=== PATIENT | male | born 1975 | race American Indian/Alaskan Native ===

== ENCOUNTER 2017-01-20 17:14 | Emergency (ER) | payer OTHER ==
[2017-01-20 17:42] VITALS: TEMP 98.1; O2SAT 97
[2017-01-20] MEDS ORDERED: Oxycodone/Acetaminophen 5/325 mg Tab PO STA (18:09)
[2017-01-20] MEDS ORDERED: Oxycodone/Acetaminophen 5/325 mg Tab ONE (18:21)
--- NOTE | 2017-01-20 18:47 | RAD ---
PROCEDURE: Left Knee Radiographs. HISTORY: Pain. COMPARISON: None. FINDINGS: BONES: Normal. No fracture. JOINTS: Mild narrowing of medial and lateral compartments and mild subchondral sclerosis medial tibial articular surface. JOINT EFFUSION: None. OTHER FINDINGS: None. IMPRESSION: Mild medial and lateral compartment osteoarthritis. No acute fracture.
--- NOTE | 2017-01-20 19:14 | C.PDOC ---
History Of Present Illness Patient is a 41 y/o male that presents to the ED s/p injury for evaluation of left knee pain. Patient states that he was hit by a fork lift, injuring his left knee FIRST LEVELER. Otherwise, denies any sensory changes, weakness, numbness, redness, swelling, fever, chills, or any other associated symptoms at this time. Time Seen by Provider: 01/20/17 18:07 Chief Complaint (Nursing): Lower Extremity Problem/Injury History Per: Patient History/Exam Limitations: no limitations Onset/Duration Of Symptoms: Other (FIRST LEVELER) Current Symptoms Are (Timing): Still Present Recent travel outside of the [place]: No Additional History Per: Patient - Knee Description Of Injury: Struck With Object Past Medical History Reviewed: Historical Data, Nursing Documentation, Vital Signs Vital Signs: Last Vital Signs Temp 98.1 F 01/20/17 17:39 Pulse 76 01/20/17 19:23 Resp 16 01/20/17 19:23 BP 152/86 H 01/20/17 19:23 Pulse Ox 97 01/20/17 19:50 - Medical History PMH: Fractures (LT HAND) Family History: States: Unknown Family Hx, Hypertension - Social History Hx Alcohol Use: Yes Hx Substance Use: Yes (Marijuana, occasionally) - Immunization History Hx Tetanus Toxoid Vaccination: No Hx Influenza Vaccination: No Hx Pneumococcal Vaccination: No Review Of Systems Except As Marked, All Systems Reviewed And Found Negative. Constitutional: Negative for: Fever, Chills Musculoskeletal: Positive for: Leg Pain (left knee pain) Neurological: Negative for: Weakness, Numbness Physical Exam - Physical Exam Appears: Non-toxic, No Acute Distress Skin: Normal Color, Warm, Dry Head: Atraumatic, Normacephalic Eye(s): bilateral: Normal Inspection, EOMI Extremity: Normal ROM, Tenderness (diffuse left knee), Capillary Refill (<2 sec. ), No Deformity, No Swelling (no left knee swelling) Extremity: Bilateral: Normal Color And Temperature, Normal ROM Pulses: Left Dorsalis Pedis: Normal, Right Dorsalis Pedis: Normal Neurological/Psych: Oriented x3, Normal Speech, Normal Cognition, Normal Motor, Normal Sensation ED Course And Treatment O2 Sat by Pulse Oximetry: 97 (on RA) Pulse Ox Interpretation: Normal - Other Rad Left knee x-ray X-Ray: Viewed By Me, Read By Radiologist Interpretation: FINDINGS: BONES: Normal. No fracture. JOINTS: Mild narrowing of medial and lateral compartments and mild subchondral sclerosis medial tibial articular surface. JOINT EFFUSION: None. OTHER FINDINGS: None. IMPRESSION: Mild medial and lateral compartment osteoarthritis. No acute fracture. Progress Note: Left knee x-ray ordered and reviewed. Patient was given Percocet in the ED. Knee mobilizer applied to left knee by CP and checked by me. Pt is being discharged home with prescriptions of Motrin, and Percocet. Crutches were provided to patient. Patient was instructed to follow up with PMD/orthopedist in 1-2 days. Disposition - Disposition Referrals: Calvin Bishop MD [Staff Provider] - Disposition: HOME/ ROUTINE Disposition Time: 19:14 Condition: GOOD Additional Instructions: Follow up with PMD / Orthopedist within 1-2 days. Return to ED if feel worse. Prescriptions: Ibuprofen [Motrin Tab] 600 mg PO Q8 #30 tab Acetaminophen/Oxycodone Hydr [Percocet 10/325 mg Tab] 1 tab PO Q6H #20 tab Instructions: Knee Sprain (ED), Knee Immobilizer (ED) Forms: Work Excuse - Clinical Impression Clinical Impression: Knee injury - PA / BOX TENDER / Resident Statement MD/DO has reviewed & agrees with the documentation as recorded. - Scribe Statement The provider has reviewed the documentation as recorded by the Brooke Schrader All medical record entries made by the Brooke were at my direction and personally dictated by me. I have reviewed the chart and agree that the record accurately reflects my personal performance of the history, physical exam, medical decision making, and the department course for this patient. I have also personally directed, reviewed, and agree with the discharge instructions and disposition.
[2017-01-20 19:24] VITALS: BP 152/86; PULSE 76; RESP 16
== END 2017-01-20 19:23 | disposition home or self-care (01) ==
LOC: C.ER 17:14
DX: S89.92XA Unspecified injury of left lower leg, initial encounter (principal); W31.89XA Contact with other specified machinery, initial encounter; Y93.89 Activity, other specified; Y92.89 Other specified places as the place of occurrence of the external cause; Y99.0 Civilian activity done for income or pay

== ENCOUNTER 2017-11-25 14:32 | Emergency (ER) | payer OTHER ==
--- NOTE | 2017-11-25 16:23 | C.PDOC ---
History Of Present Illness 42-year-old male, presents to the emergency department with complaints of hand pain. 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 Patient states the pain and swelling worsened today, prompting visit. Denies any numbness/weakness or other injury. Time Seen by Provider: 11/25/17 14:57 Chief Complaint (Nursing): Upper Extremity Problem/Injury History Per: Patient History/Exam Limitations: no limitations Onset/Duration Of Symptoms: Days (1), Persistent Current Symptoms Are (Timing): Still Present Exacerbating Factor(s): Movement Past Medical History Reviewed: Historical Data, Nursing Documentation, Vital Signs Vital Signs: Last Vital Signs Temp 98.3 F 11/25/17 17:06 Pulse 88 11/25/17 17:06 Resp 18 11/25/17 17:06 BP 148/90 11/25/17 17:06 Pulse Ox 98 11/25/17 17:53 - Medical History PMH: Fractures (LT HAND) Family History: States: Hypertension - Social History Hx Alcohol Use: Yes Hx Substance Use: Yes (Marijuana, occasionally) - Immunization History Hx Tetanus Toxoid Vaccination: No Hx Influenza Vaccination: No Hx Pneumococcal Vaccination: No Review Of Systems Gastrointestinal: Negative for: Vomiting Musculoskeletal: Positive for: Hand Pain Neurological: Negative for: Weakness, Numbness Physical Exam - Physical Exam Appears: Non-toxic, No Acute Distress Skin: Warm, Dry, No Rash Head: Normacephalic Eye(s): bilateral: PERRL Nose: Normal Oral Mucosa: Moist Lips: Normal Appearing Neck: Normal ROM Chest: Symmetrical Cardiovascular: Rhythm Regular, No Murmur Respiratory: No Accessory Muscle Use, Other (no acute respiratory distress) Extremity: Tenderness, Capillary Refill (<2 seconds), No Deformity, Other ( tenderness to the dorsal aspect of 2nd, 3rd and 4th mcp joint of left hand) Pulses: Left Radial: Normal, Right Radial: Normal Neurological/Psych: Oriented x3, Normal Speech ED Course And Treatment O2 Sat by Pulse Oximetry: 98 (RA) Pulse Ox Interpretation: Normal Medical Decision Making Medical Decision Making: Plan: * XR L hand * Motrin, Toradol, Prednisone * Reassess and Disposition Xrays were negative for fracture. WRist splint was applied for support. Disposition - Disposition Referrals: Marcus Ye MD [Staff Provider] - Iftikhar Clinton MD [Staff Provider] - Disposition: HOME/ ROUTINE Disposition Time: 16:00 Condition: GOOD Additional Instructions: Follow up with the medical doctor within 1-2 days. Return if worsened. Prescriptions: Ibuprofen [Motrin Tab] 800 mg PO TID #20 tab oxyCODONE/Acetaminophen [Percocet 5/325 mg Tab] 1 tab PO QID PRN #10 tab PRN Reason: Pain predniSONE [Prednisone] 20 mg PO BID #10 tab Instructions: Wrist Sprain (DC) Forms: [employer] (Latvian), Work Excuse - Clinical Impression Clinical Impression: Hand sprain - Scribe Statement The provider has reviewed the documentation as recorded by the Scribe (Yves Bishop) All medical record entries made by the Scribe were at my direction and personally dictated by me. I have reviewed the chart and agree that the record accurately reflects my personal performance of the history, physical exam, medical decision making, and the department course for this patient. I have also personally directed, reviewed, and agree with the discharge instructions and disposition.
[2017-11-25 17:07] VITALS: BP 148/90; PULSE 88; RESP 18; TEMP 98.3
[2017-11-25 17:15] VITALS: O2SAT 98
--- NOTE | 2017-11-25 17:21 | RAD ---
PROCEDURE: Left Hand Radiographs. HISTORY: hand swelling and injury. Pain to 2-4 MCP joints COMPARISON: None. FINDINGS: BONES: There is a fracture of the tuft of the distal phalanx left thumb. JOINTS: Normal. No osteoarthritic changes. SOFT TISSUES: Normal. OTHER FINDINGS: None. IMPRESSION: Tuft fracture distal phalanx left thumb. No dislocation or subluxation.
== END 2017-11-25 17:11 | disposition home or self-care (01) ==
LOC: C.ER 14:32
DX: S63.92XA Sprain of unspecified part of left wrist and hand, initial encounter (principal); X50.9XXA Other and unspecified overexertion or strenuous movements or postures, initial encounter; Y93.89 Activity, other specified; Y92.89 Other specified places as the place of occurrence of the external cause; Y99.0 Civilian activity done for income or pay
CPT/HCPCS: 73130; 96372; 99284; J1885

== ENCOUNTER 2018-01-30 12:36 | Emergency (ER) | payer OTHER ==
[2018-01-30 12:45] VITALS: BP 161/109; PULSE 118; RESP 20; TEMP 98.2; O2SAT 99
[2018-01-30 13:49] LABS: SQUAMOUS EPITHIAL 2 /hpf (0-5); URINE BACTERIA RARE (<OCC); URINE BILIRUBIN NEGATIVE (NEGATIVE); URINE BLOOD 1+ (NEGATIVE); URINE CLARITY Hazy (Clear); URINE COLOR Amber (YELLOW); URINE GLUCOSE (UA) NORMAL (Normal); URINE LEUKOCYTE ESTERASE NEG Leu/uL (Negative); URINE PROTEIN 2+ mg/dL (NEGATIVE)
[2018-01-30] MEDS ORDERED: cefTRIAXone (Rocephin) 250 mg Inj IM STA (13:54)
--- NOTE | 2018-01-30 14:02 | C.PDOC ---
History Of Present Illness 42 y/o male presents to the ER for evaluation of possible infection after he was urinating and his penis touched the toilet bowl. Patient is concerned that he may have infection. Patient denies having penile discharge, rash, and dysuria. Time Seen by Provider: 01/30/18 12:48 Chief Complaint (Nursing): Male Genitourinary History Per: Patient History/Exam Limitations: no limitations Onset/Duration Of Symptoms: Hrs Current Symptoms Are (Timing): Still Present Severity: Moderate Past Medical History Reviewed: Historical Data, Nursing Documentation, Vital Signs Vital Signs: Last Vital Signs Temp 98.2 F 01/30/18 12:44 Pulse 118 H 01/30/18 12:44 Resp 20 01/30/18 12:44 BP 161/109 H 01/30/18 12:44 Pulse Ox 99 01/30/18 15:26 - Medical History PMH: Fractures (LT HAND) Surgical History: No Surg Hx Family History: States: Hypertension - Social History Hx Alcohol Use: Yes Hx Substance Use: Yes (Marijuana, occasionally) - Immunization History Hx Tetanus Toxoid Vaccination: No Hx Influenza Vaccination: No Hx Pneumococcal Vaccination: No Review Of Systems Except As Marked, All Systems Reviewed And Found Negative. Genitourinary: Negative for: Dysuria, Penile Discharge Skin: Negative for: Rash Physical Exam - Physical Exam Appears: Non-toxic, No Acute Distress Skin: Normal Color, Warm, Dry Head: Atraumatic, Normacephalic Eye(s): bilateral: Normal Inspection Nose: Normal Oral Mucosa: Moist Neck: Supple Chest: Symmetrical Cardiovascular: Rhythm Regular Respiratory: Normal Breath Sounds, No Rales, No Rhonchi, No Wheezing Male Genital: Normal Inspection, No Testicular Swelling, Circumcised, Other (no discharge, no rash) Neurological/Psych: Oriented x3, Normal Speech ED Course And Treatment O2 Sat by Pulse Oximetry: 99 (RA) Pulse Ox Interpretation: Normal Medical Decision Making Medical Decision Making: Impression: Urethritis exam 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 Patient insisting on treatment with antibiotics, despite denying any sexual contact and no discharge on exam. Treated with Rocephin IM and Zithromax PO. Additionally patient found to be hypertensive, he reports he has been told but has yet to follow up with PCP or clinic. He is asymptomatic. Patient stable for discharge. Disposition Counseled Patient/Family Regarding: Diagnosis, Need For Followup, Rx Given - Disposition Referrals: [facility] [Outside] [facility] [Outside] Disposition: HOME/ ROUTINE Disposition Time: 13:59 Condition: STABLE Additional Instructions: Please follow up in the clinic or your doctor for further evaluation of hypertension You may call [facility] for any assistance [phone]. 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 - Scribe Statement The provider has reviewed the documentation as recorded by the Tanyaibe Hayden Almazan Provider Attestation All medical record entries made by the Scribe were at my direction and personally dictated by me. I have reviewed the chart and agree that the record accurately reflects my personal performance of the history, physical exam, medical decision making, and the department course for this patient. I have also personally directed, reviewed, and agree with the discharge instructions and disposition.
== END 2018-01-30 14:24 | disposition home or self-care (01) ==
LOC: C.ER 12:36
DX: I10 Essential (primary) hypertension (principal); N34.2 Other urethritis
CPT/HCPCS: 81001; 87491; 87591; 96372; 99284; J0696

== ENCOUNTER 2018-04-03 11:49 | Emergency (ER) | payer OTHER ==
[2018-04-03 11:56] VITALS: TEMP 98.7
[2018-04-03 12:33] VITALS: BP 155/107; PULSE 87; RESP 20; O2SAT 97
--- NOTE | 2018-04-03 13:00 | RAD ---
Date of service: 04/03/2018 HISTORY: COUGH COMPARISON: 01/07/2016 TECHNIQUE: Chest PA and lateral FINDINGS: LUNGS: No active pulmonary disease. PLEURA: No significant pleural effusion identified. No pneumothorax apparent. CARDIOVASCULAR: Normal. OSSEOUS STRUCTURES: No significant abnormalities. VISUALIZED UPPER ABDOMEN: Normal. OTHER FINDINGS: None. IMPRESSION: No active disease. No significant interval change compared to the prior examination(s).
--- NOTE | 2018-04-03 13:44 | C.PDOC ---
History Of Present Illness 42yo male, with history of hypertension and currently non-compliant with medication x 2 years, comes to ER for evaluation of cough, congestion and cold symptoms. He reports mild chest tightness due to coughing and states he noted some yellow sputum today. He reports the cold symptoms have now resolved but the cough is still persistent. Patient denies any fever, chills, shortness of breath, headache, chest pain, dizziness or blurry vision. He has no additional medical complaints. Time Seen by Provider: 04/03/18 12:22 Chief Complaint (Nursing): Cough, Cold, Congestion History Per: Patient History/Exam Limitations: no limitations Onset/Duration Of Symptoms: Days Current Symptoms Are (Timing): Still Present Past Medical History Reviewed: Historical Data, Nursing Documentation, Vital Signs Vital Signs: Last Vital Signs Temp 98.7 F 04/03/18 11:55 Pulse 87 04/03/18 12:32 Resp 20 04/03/18 12:32 BP 155/107 H 04/03/18 12:32 Pulse Ox 97 04/03/18 13:44 - Medical History PMH: Fractures (LT HAND), HTN Surgical History: No Surg Hx Family History: States: Hypertension - Social History Hx Alcohol Use: Yes Hx Substance Use: Yes (Marijuana, occasionally) - Immunization History Hx Tetanus Toxoid Vaccination: No Hx Influenza Vaccination: No Hx Pneumococcal Vaccination: No Review Of Systems Constitutional: Negative for: Fever, Chills Eyes: Negative for: Vision Change Cardiovascular: Positive for: Other (chest tightness due to cough). Negative for: Chest Pain, Palpitations Respiratory: Positive for: Cough, Sputum. Negative for: Shortness of Breath Gastrointestinal: Negative for: Vomiting Neurological: Negative for: Weakness, Numbness, Headache, Dizziness Physical Exam - Physical Exam Appears: Non-toxic, No Acute Distress Skin: Normal Color, Warm Head: Atraumatic, Normacephalic Eye(s): bilateral: Normal Inspection Oral Mucosa: Moist Neck: Normal ROM, Supple Chest: Symmetrical Cardiovascular: Rhythm Regular, No Murmur Respiratory: Normal Breath Sounds Extremity: Normal ROM, No Pedal Edema, No Deformity Neurological/Psych: Oriented x3, Normal Speech, Normal Cognition, Normal Motor, Normal Sensation ED Course And Treatment O2 Sat by Pulse Oximetry: 97 (RA) Pulse Ox Interpretation: Normal Medical Decision Making Medical Decision Making: Plan: -- CXR A long discussion was had with patient regarding effects of termination clerk untreated hypertension including risks of stroke and . Patient informed on need for strict follow up with a PCP for termination clerk management of hypertension and reports understanding and agreement. Patient states during his last ER visit, he was given blood pressure medication so a new prescription provided to patient. Informed that he will need follow up in medical clinic in 2 weeks for reevaluation of medication and further management. Disposition Counseled Patient/Family Regarding: Studies Performed, Diagnosis, Need For Followup, Rx Given, Smoking Cessation - Disposition Referrals: [facility] [Outside] Disposition: HOME/ ROUTINE Disposition Time: 13:40 Condition: GOOD Additional Instructions: Take Mucinex if needed for cough- over the counter medication. Please take blood pressure medication as prescribed (once a day at same time) and you must follow up in medical clinic within 2 weeks for re-evaluation and for renewed prescription. Return to ER for any worse symptoms. 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 - Scribe Statement The provider has reviewed the documentation as recorded by the Scribe (Ramona Plummer) All medical record entries made by the Scribe were at my direction and personally dictated by me. I have reviewed the chart and agree that the record accurately reflects my personal performance of the history, physical exam, medical decision making, and the department course for this patient. I have also personally directed, reviewed, and agree with the discharge instructions and disposition.
== END 2018-04-03 13:51 | disposition home or self-care (01) ==
LOC: C.ER 11:49
DX: I10 Essential (primary) hypertension (principal); J40 Bronchitis, not specified as acute or chronic

== ENCOUNTER 2018-08-28 17:55 | Emergency (ER) | payer SELFPAY ==
[2018-08-28 18:02] VITALS: BMI 32.5
[2018-08-28 18:03] VITALS: RESP 20
--- NOTE | 2018-08-28 18:34 | C.PDOC ---
History Of Present Illness 43 year old M with no known history presented with left rib pain s[ fall two weeks ago. He denies any head trauma or LOC. Fiver days ago, he started having rib pain which is worse with movement. It's very unconfortable when laying down. He denies any chest pain or shortness of breath. He denies any nausea, vomiting or diarrhea. Time Seen by Provider: 08/28/18 18:07 Chief Complaint (Nursing): Rib Injury History Per: Patient Onset/Duration Of Symptoms: Days Current Symptoms Are (Timing): Still Present Severity: Mild Pain Scale Rating Of: 6 Location Of Discomfort (Image): 1 - left lower rib. Past Medical History Vital Signs: Last Vital Signs Temp 98.4 F 08/28/18 18:01 Pulse 94 H 08/28/18 18:01 Resp 20 08/28/18 18:01 BP 147/98 H 08/28/18 18:01 Pulse Ox 97 08/28/18 18:01 - Medical History PMH: No Chronic Diseases, Fractures (LT HAND), HTN Surgical History: No Surg Hx Family History: States: No Known Family Hx, Hypertension - Social History Hx Tobacco Use: Yes Hx Alcohol Use: Yes Hx Substance Use: Yes (Marijuana, occasionally) - Immunization History Hx Tetanus Toxoid Vaccination: No Hx Influenza Vaccination: No Hx Pneumococcal Vaccination: No Review Of Systems Respiratory: Positive for: Other (Rib pain s/p fall) Physical Exam - Physical Exam Appears: Well, Non-toxic Skin: Normal Color Head: Atraumatic Eye(s): bilateral: Normal Inspection Ear(s): Bilateral: Normal Oral Mucosa: Moist Tongue: Normal Appearing Lips: Normal Appearing Teeth: Normal Dentition Gingiva: Normal Appearing Throat: Normal Neck: Normal Lymphatic: Deferred Chest: Symmetrical, Tenderness Cardiovascular: Rhythm Regular Respiratory: Normal Breath Sounds Gastrointestinal/Abdominal: Normal Exam Back: Normal Inspection Extremity: Normal ROM Extremity: Bilateral: Atraumatic Pulses: Left Radial: Normal, Right Radial: Normal ED Course And Treatment O2 Sat by Pulse Oximetry: 97 Medical Decision Making Medical Decision Making: EKG: NSR, Sinus arrhythmia, 79 bpm, T inversion lead 2, 3, avf. No change since December 2015 Rib x-ray ordered. Disposition - Disposition Disposition: HOME/ ROUTINE Disposition Time: 18:50 Condition: GOOD Forms: [employer] (Italian) - Clinical Impression Clinical Impression: Contusion Physician Patient Turnover Patient Signed Over To: Lorenza Heller Handoff Comments: pending rib XR and re-evaluation
[2018-08-28 19:21] VITALS: BP 135/89; PULSE 85; TEMP 98.5; O2SAT 95
--- NOTE | 2018-08-29 07:18 | RAD ---
Date of service: 08/28/2018 PROCEDURE: Radiographs of the Chest and Left Ribs. HISTORY: s/p fall r/o fx COMPARISON: None available. TECHNIQUE: Frontal radiograph of the chest and multiple oblique radiographs of the left ribs were obtained. FINDINGS: LEFT RIBS: No fracture or focal lesion visualized. LUNGS: Clear. PLEURA: No pneumothorax or pleural fluid. CARDIOVASCULAR: Normal cardiac size. No pulmonary vascular congestion. No aortic atherosclerotic calcification present OTHER FINDINGS: None. IMPRESSION: Unremarkable radiographs of the chest and left ribs. No left rib fracture.
--- NOTE | 2018-08-30 22:03 | CARD ---
APPROVED REPORT Date of service: 08/28/2018 EKG Measurement Heart [id number] <Conclusion> Sinus rhythm with marked sinus arrhythmia. Blocked PAC? T wave abnormality, consider inferior ischemia Abnormal ECG
== END 2018-08-28 19:21 | disposition home or self-care (01) ==
LOC: C.ER 17:55
DX: S20.212A Contusion of left front wall of thorax, initial encounter (principal); W19.XXXA Unspecified fall, initial encounter; Z72.0 Tobacco use